=== PATIENT | male | born 1975 | race Caucasian/White ===

== ENCOUNTER → 2017-07-19 | Emergency (ER) | payer MEDICAID ==
[~2017-07-19] VITALS: Ht 188 cm; Wt 91.3 kg
[~2017-07-19] MED LIST: DIPH25CA83 PO; IBUP-1984 PO; METH4TAB3 PO; PRED20TA PO
[2017-07-19 09:06] VITALS: BP 154/105
== END | disposition home or self-care (01) ==
LOC: ER 08:57
DX: F15.10 Other stimulant abuse, uncomplicated (principal); L30.9 Dermatitis, unspecified; L84 Corns and callosities; Z98.890 Other specified postprocedural states
CPT/HCPCS: 99281

== ENCOUNTER 2018-02-08 14:26 | Emergency (ER) | payer MEDICAID ==
[~2018-02-08] VITALS: Ht 188 cm; Wt 103.0 kg
[2018-02-08 16:21] LABS: CLARITY,URINE CLEAR (Clear); COLOR,URINE STRAW (Yellow); GLUCOSE, URINE NEGATIVE (Neg); KETONES,URINE NEGATIVE (Neg); LEUKOCYTE ESTERASE ,URINE NEGATIVE (Neg); NITRITES, URINE NEGATIVE (Neg); OCCULT BLOOD,URINE NEGATIVE (Neg); PROTEIN,URINE NEGATIVE (Neg); UA COLLECTION TYPE CLN CATCH MIDSTREAM; UROBILINOGEN,URINE 0.2 E.U/dL (0.2-1.0)
[2018-02-08 16:27] LABS: URINE AMPHETAMINE SCREEN POSITIVE (Neg); URINE BARBITUATE SCREEN NEGATIVE (Neg); URINE BENZODIAZEPINES SCREEN NEGATIVE (Neg); URINE CANNABINOID SCREEN POSITIVE (Neg); URINE COCAINE SCREEN NEGATIVE (Neg); URINE METHADONE SCREEN NEGATIVE (Neg); URINE OPIATE SCREEN NEGATIVE (Neg); URINE PHENCYCLIDINE SCREEN NEGATIVE (Neg)
[2018-02-08] MEDS ORDERED: IBUP-1984 PO (17:35)
[2018-02-08 17:38] VITALS: BP 111/76
== END 2018-02-08 17:43 | disposition home or self-care (01) ==
LOC: ER 14:26
DX: M79.661 Pain in right lower leg (principal); R60.0 Localized edema; R10.31 Right lower quadrant pain; F15.90 Other stimulant use, unspecified, uncomplicated; X58.XXXA Exposure to other specified factors, initial encounter; Y93.39 Activity, other involving climbing, rappelling and jumping off; Y92.89 Other specified places as the place of occurrence of the external cause; Y99.8 Other external cause status
CPT/HCPCS: 73590; 73610; 80305; 81003; 93971; 99285

== ENCOUNTER 2018-04-19 04:34 | Emergency (ER) | payer MEDICAID ==
[~2018-04-19] VITALS: Ht 188 cm; Wt 98.0 kg
[2018-04-19 04:44] VITALS: BP 125/89
== END 2018-04-19 04:57 | disposition home or self-care (01) ==
LOC: ER 04:35
DX: R52 Pain, unspecified (principal); F15.90 Other stimulant use, unspecified, uncomplicated; Z79.899 Other long term (current) drug therapy; Z98.890 Other specified postprocedural states; Z59.0 Homelessness
CPT/HCPCS: 99281

== ENCOUNTER 2018-07-24 16:06 | Emergency (ER) | payer MEDICAID | END 2018-07-24 16:26 | disposition left against medical advice (07) | LOC: ER 16:06 | DX: T14.8XXA Other injury of unspecified body region, initial encounter (principal); Z53.21 Procedure and treatment not carried out due to patient leaving prior to being seen by health care provider; W54.0XXA Bitten by dog, initial encounter; Y93.89 Activity, other specified; Y92.89 Other specified places as the place of occurrence of the external cause; Y99.8 Other external cause status ==

== ENCOUNTER 2022-06-30 12:03 | Emergency (ER) | payer MEDICAID ==
[~2022-06-30] VITALS: Ht 188 cm; Wt 97.7 kg
[2022-06-30 14:46] VITALS: BP 138/108
--- NOTE | 2022-06-30 16:38 | NUR ---
pt eloped at approx 1555. pt n ot in room , aware.
== END 2022-06-30 18:49 | disposition left against medical advice (07) ==
LOC: ER 12:04
DX: R45.851 Suicidal ideations (principal); Z53.21 Procedure and treatment not carried out due to patient leaving prior to being seen by health care provider
CPT/HCPCS: 82948; 99281

== ENCOUNTER 2022-07-06 11:59 | Emergency (ER) | payer MEDICAID ==
[~2022-07-06] VITALS: Ht 188 cm; Wt 100.0 kg
[2022-07-06 12:15] VITALS: BP 149/104
== END 2022-07-06 15:00 | disposition home or self-care (01) ==
LOC: ER 11:59
DX: F15.10 Other stimulant abuse, uncomplicated (principal); F11.10 Opioid abuse, uncomplicated; F17.200 Nicotine dependence, unspecified, uncomplicated; Z79.899 Other long term (current) drug therapy; Z59.00 Homelessness unspecified
CPT/HCPCS: 99281

== ENCOUNTER 2022-09-13 17:41 | Emergency (ER) | payer MEDICAID | END 2022-09-13 18:21 | disposition left against medical advice (07) | LOC: ER 17:41 | DX: M79.603 Pain in arm, unspecified (principal); Z53.21 Procedure and treatment not carried out due to patient leaving prior to being seen by health care provider ==

== ENCOUNTER 2022-09-16 14:22 | Emergency (ER) | payer MEDICAID ==
[~2022-09-16] VITALS: Ht 188 cm; Wt 104.0 kg
[2022-09-16 14:49] VITALS: BP 118/92
--- NOTE | 2022-09-16 15:29 | NUR ---
xray at bs
== END 2022-09-16 16:06 | disposition home or self-care (01) ==
LOC: ER 14:22
DX: M79.602 Pain in left arm (principal); M79.89 Other specified soft tissue disorders
CPT/HCPCS: 73110; 99283; A6449

== ENCOUNTER 2022-10-24 04:58 | Emergency (ER) | payer MEDICAID ==
[~2022-10-24] VITALS: Ht 188 cm; Wt 104.5 kg
[2022-10-24 07:30] VITALS: BP 152/111
--- NOTE | 2022-10-24 07:43 | NUR ---
DISCHARGE PAPERS READY, TRIED GETTING PT UP. PT STARTED VOMMITING AND UNSTEADY ON FEET.
[2022-10-24] MEDS ORDERED: ondansetron 4mg rapidly disintigrating tab PO ONE (08:10)
--- NOTE | 2022-10-24 08:12 | NUR ---
Pt dry sandra morrison given.
--- NOTE | 2022-10-24 08:14 | NUR ---
PT REFUSING TO GET INTO BED, SITTING ON CHAIR.
[2022-10-24] MEDS ORDERED: metoclopramide 5 mg/ml inj IM ONE (10:15)
--- NOTE | 2022-10-24 10:30 | NUR ---
Pt still vomiting, new rx ordered.
[2022-10-25] MEDS ORDERED: AZIT-31 PO (14:12)
== END 2022-10-24 11:15 | disposition home or self-care (01) ==
LOC: ER 04:58
DX: T40.411A Poisoning by fentanyl or fentanyl analogs, accidental (unintentional), initial encounter (principal); R41.82 Altered mental status, unspecified; F15.10 Other stimulant abuse, uncomplicated; Z59.00 Homelessness unspecified; Z56.0 Unemployment, unspecified; Z88.8 Allergy status to other drugs, medicaments and biological substances; Z79.899 Other long term (current) drug therapy; Y92.89 Other specified places as the place of occurrence of the external cause
CPT/HCPCS: 96372; 99285; J2765; A4615

== ENCOUNTER 2022-10-25 12:22 | Emergency (ER) | payer MEDICAID ==
[~2022-10-25] VITALS: Ht 188 cm; Wt 104.5 kg
[2022-10-25 12:50] VITALS: BP 133/94
[2022-10-25] MEDS ORDERED: AZIT-31 PO (14:12)
== END 2022-10-25 14:32 | disposition home or self-care (01) ==
LOC: ER 12:22
DX: H66.91 Otitis media, unspecified, right ear (principal); F19.10 Other psychoactive substance abuse, uncomplicated; F17.200 Nicotine dependence, unspecified, uncomplicated; Z88.8 Allergy status to other drugs, medicaments and biological substances; Z59.00 Homelessness unspecified; Z56.0 Unemployment, unspecified
CPT/HCPCS: 99283

== ENCOUNTER 2022-11-01 04:10 | Emergency (ER) | payer MEDICAID ==
[~2022-11-01] VITALS: Ht 188 cm; Wt 104.5 kg
[2022-11-01 04:15] VITALS: BP 125/88
--- NOTE | 2022-11-01 04:21 | NUR ---
DRANK A CUP OF ICE WATER WITHOUT DIFFICULTY.
== END 2022-11-01 04:30 | disposition home or self-care (01) ==
LOC: ER 04:11
DX: Z00.00 Encounter for general adult medical examination without abnormal findings (principal); F15.20 Other stimulant dependence, uncomplicated; Z88.8 Allergy status to other drugs, medicaments and biological substances; Z59.00 Homelessness unspecified; Z56.0 Unemployment, unspecified
CPT/HCPCS: 99283

== ENCOUNTER 2023-08-07 14:44 | Emergency (ER) | payer MEDICAID ==
[~2023-08-07] VITALS: Ht 188 cm; Wt 114.8 kg
[2023-08-07 14:46] VITALS: BP 127/99; PULSE 98; RESP 16; TEMP 98.2; O2SAT 96
[2023-08-07] MEDS ORDERED: PRED20TA PO (15:19)
[2023-08-07] MEDS ORDERED: SKIN30CL4 TP (15:19)
[2023-08-07] MEDS: dexamethasone sod phosphate 10mg/ml inj IM STA (15:40)
== END 2023-08-07 15:48 | disposition home or self-care (01) ==
LOC: ER 14:44
DX: L30.9 Dermatitis, unspecified (principal); F15.90 Other stimulant use, unspecified, uncomplicated; Z88.8 Allergy status to other drugs, medicaments and biological substances; Z79.899 Other long term (current) drug therapy
CPT/HCPCS: 96372; 99283; J1100

== ENCOUNTER 2023-11-30 17:31 | Emergency (ER) | payer MEDICAID ==
[~2023-11-30] VITALS: Ht 188 cm; Wt 104.5 kg
[~2023-11-30 17:31] MED LIST changes: +SKIN30CL4 TP
[2023-11-30] MEDS: traMADol 50MG tablet PO ONE (18:04)
[2023-11-30] MEDS: ketorolac trometh. 30mg/ml inj. IM ONE (18:06)
[2023-11-30 18:33] VITALS: BP 132/84; PULSE 83; RESP 18; TEMP 98.4; O2SAT 98
== END 2023-11-30 18:36 | disposition home or self-care (01) ==
LOC: ER 17:32
DX: M54.50 Low back pain, unspecified (principal); F17.200 Nicotine dependence, unspecified, uncomplicated; F15.90 Other stimulant use, unspecified, uncomplicated; Z72.89 Other problems related to lifestyle; Z59.00 Homelessness unspecified; Z56.0 Unemployment, unspecified; Z88.8 Allergy status to other drugs, medicaments and biological substances; Z79.899 Other long term (current) drug therapy; Z79.52 Long term (current) use of systemic steroids
CPT/HCPCS: 96372; 99283; J1885

== ENCOUNTER 2024-06-05 14:34 | Emergency (ER) | payer MEDICAID ==
[~2024-06-05] VITALS: Ht 188 cm; Wt 106.9 kg
[2024-06-05] MEDS ORDERED: IBUP-1985 PO (16:40)
[2024-06-05 17:09] VITALS: BP 126/72; PULSE 89; RESP 16; TEMP 98.9; O2SAT 98
[2024-06-05 17:21] LABS: APPEARANCE,SYNOVIAL FLUID CLOUDY; COLOR,SYNOVIAL FLUID YELLOW; SYN RBC 900 /CU MM (0); SYN WBC 13350 /CU MM (0-200)
== END 2024-06-05 17:13 | disposition home or self-care (01) ==
LOC: ER 14:35
DX: M25.461 Effusion, right knee (principal); F15.90 Other stimulant use, unspecified, uncomplicated; M25.561 Pain in right knee; Z79.899 Other long term (current) drug therapy; Z56.0 Unemployment, unspecified; Z59.00 Homelessness unspecified; Z98.890 Other specified postprocedural states; Z72.89 Other problems related to lifestyle; Z88.8 Allergy status to other drugs, medicaments and biological substances
CPT/HCPCS: 20610; 73564; 87205; 89051; 99284; A6449

== ENCOUNTER 2024-06-19 08:32 | Emergency (ER) | payer MEDICAID ==
[~2024-06-19] VITALS: Ht 188 cm; Wt 118.2 kg
[~2024-06-19 08:32] MED LIST changes: +IBUP-1985 PO
[2024-06-19 08:39] VITALS: BP 126/85; PULSE 115; RESP 18; TEMP 98.7; O2SAT 96
== END 2024-06-19 10:03 | disposition home or self-care (01) ==
LOC: ER 08:32
DX: J32.9 Chronic sinusitis, unspecified (principal); R05.9 Cough, unspecified; J45.909 Unspecified asthma, uncomplicated; F17.200 Nicotine dependence, unspecified, uncomplicated; F15.90 Other stimulant use, unspecified, uncomplicated; Z88.8 Allergy status to other drugs, medicaments and biological substances; Z59.00 Homelessness unspecified; Z79.899 Other long term (current) drug therapy
CPT/HCPCS: 99281

== ENCOUNTER 2025-02-21 08:20 | Emergency (ER) | payer MEDICAID ==
[~2025-02-21] VITALS: Ht 188 cm; Wt 122.2 kg
[~2025-02-21 08:20] MED LIST changes: -IBUP-1985 PO; +IBUP600T52 PO
[2025-02-21 08:24] VITALS: BP 126/85; PULSE 88; RESP 16; TEMP 98.2; O2SAT 96
[2025-02-21 09:01] LABS: STREP A SCREEN NEGATIVE (Neg)
--- NOTE | 2025-02-21 09:15 | Physician Documentation ---
History of Present Illness ~ Chief Complaint: Sore Throat Stated Complaint: POSS STREP Time Seen by MD: 09:07 OK to notify your PCP?: Yes Primary Medical Doctor: NONE Source: patient, RN/MD, RN notes reviewed, old records Mode of Arrival: POV Exam Limitations: no limitations HPI This patient is a 49 y/o male who presents to ED with chief complaint of sore throat. Patient reports he has had a worsening sore throat a little over 24 hours. He also endorses runny nose and nasal congestion, but states his sore throat is his biggest complaint. Patient notes he has had strep throat in the past and that this feels similar. Patient denies any fevers. Patient denies any other associated symptoms at this time. Patient denies any other alleviating or exacerbating factors. Medication Reconciliation Allergies: Coded Allergies: aripiprazole (Unverified Allergy, Unknown, 11/30/23) PER PT Scheduled Azithromycin (Zithromax), 1 TAB PO DAILY Diphenhydramine Hcl (Benadryl), 1 CAP PO HS Ibuprofen (Ibuprofen), 1 TAB PO Q8H Methylprednisolone (Medrol), 1 DOSPAK PO UD Prednisone* (Prednisone*), 20 MG PO BID Skin Cleanser Combination No.8 (Zanfel), 1 APPLIC TP PRN Scheduled PRN Ibuprofen* (Motrin*), 800 MG PO TID PRN Past Medical History Past Medical History: Asthma, Eczema Past Surgical History: orthopedic surgeries Smoking Status: Current every day smoker Alcohol Use: Occasionally Drug Use: methamphetamine Lives In: Homeless Occupation: unemployed Review of Systems All Other Systems at this time: Reviewed and Negative Physical Exam Vital Signs: RN Vital Signs have been reviewed: Yes, Temperature: 98.2, Source: Oral, Heart Rate: 88, Respiratory Rate: 16, BP: 126/85, Pulse Oximetry: 96, Weight: 122.200 Oxygen Flow Rate: 0 Physical Exam General: The patient is well developed, well nourished, nontoxic appearing and is in no acute distress. Skin: [place], warm and dry with no rashes. HEENT: Nasal congestion. Pharyngeal erythema with petechiae. The mouth and oropharynx were otherwise clear with moist mucous membranes.Head was normocephalic and atraumatic. Eyes - pupils equal, round, reactive to light and accommodation. Extraocular movements were intact. Conjunctivae were nonicteric. Neck: Lymphadenopathy. Neck otherwise supple and nontender. There was no jugular venous distention, thyromegaly or masses. Chest: Clear to auscultation bilaterally without wheezes, rales or rhonchi. No accessory muscle use. No dullness to percussion. Heart: Rate regular and rhythmic. S1, S2. No murmurs. Palpation of the chest wall was normal. No rubs or thrills. Abdomen: Soft, nontender and nondistended. Positive bowel sounds. No guarding or rebound. No hepatosplenomegaly or palpable masses. Extremities: No cyanosis, clubbing or edema. The patient moves all extremities. Pulses were equal and symmetric. Neurologic: Cranial nerves II-XII were intact. Sensation was intact to light touch throughout. Motor strength was 5/5 in all four extremities. Deep tendon reflexes were intact in both upper and lower extremities. Psychologic: The patient was oriented to person, place and time. The patient demonstrated appropriate judgement and insight. Progress Results/Orders Reviewed/noted all lab results: Yes Results/Orders Orders - CHATO MENDOZA MD Cult Throat + R/O Beta Strep (02/21/25 09:01) Completed Orders - CHATO MENDOZA MD Strep A Rapid (02/21/25 08:27) Dexamethasone Inj (Decadron 10mg/Ml Inj) (02/21/25 09:22) Diphenhydramine Oral Solution (Hydramine (02/21/25 09:25) Azithromycin Tablet (Zithromax Tablet) (02/21/25 09:25) Naproxen Tablet (Naprosyn Tablet) (02/21/25 09:25) Medications Received in ER Medications (Trade) Dose Ordered Sig/Fabien Route PRN Reason Start Time Stop Time Status Last Admin Dose Admin (Decadron 10mg/ ml inj) 10 mg ONCE STAT PO 02/21/25 09:22 02/21/25 09:24 DC 02/21/25 09:39 10 MG (Zithromax tablet) 500 mg ONCE ONCE PO 02/21/25 09:25 02/21/25 09:26 DC 02/21/25 09:39 500 MG (Naprosyn tablet) 500 mg ONCE ONCE PO 02/21/25 09:25 02/21/25 09:26 DC 02/21/25 09:39 500 MG Vital Signs 02/21/25 08:24 Temp 98.2 Pulse 88 Resp 16 B/P (MAP) 126/85 Pulse Ox 96 O2 Flow Rate 0 Laboratory Tests Test 02/21/25 08:20 Group A Streptococcus Rapid Negative Re-Evaluation Re-Evaluation : Re-Evaluation: Improved Progress Patient was seen and examined. Patient is given reassurance. Patient received steroids, liquid Benadryl, naproxen for pain and started on antibiotics for presumed strep pharyngitis. Physical exam had some petechiae redness very suspicious for strep pharyngitis. Patient was having some low-grade fevers but also had some URI like complaints such as some nasal congestion denies any exposure to COVID this is not the worst sore throat that they have had in the p ast. With the extensive petechiae on the oropharynx patient will be treated for strep pharyngitis. Later the culture came back as negative but will continue the bacterial treatment. Medical Decision Making Additional information obtaine: old records Findings Viral versus bacterial pharyngitis however COVID is also in the differential. Ear Diff. Dx: Considerations: Include: Other Eye Diff. Dx: Considerations: Include: Other Nose Diff. Dx: Considerations: Include: Other Tooth Diff. Dx: Considerations: Include: Other Throat Diff Dx: Considerations: Include: Epiglottitis, Esophageal candidiasis, Hand foot mouth disease, Herpangina, Herpetic stomatitis, Herpes simplex, Infection mononucleosis, Immunodeficiency, Tuan's angina, Peritonsillar abscess, Peritonsillar cellulitis, Pharyngitis-strepococcal, Pharyngitis-viral, Thrush, URI, Other Departure Time of Disposition: 09:30 Disposition: 01 HOME / SELF CARE / HOMELESS Impression: Primary Impression: Strep pharyngitis Condition: Stable Discharge Instructions: Sore Throat, Strep Throat, Adult Referrals: NO PRIMARY CARE PROVIDER (PCP) Prescriptions Azithromycin (Zithromax) 250 Mg Tablet 1 TAB PO DAILY, #4 TAB Prov: CHATO MENDOZA MD 02/21/25 Education Educated: Patient Educated regarding: diagnosis, treatment, need for follow up Signature Scribe Signature: Scribed for Chato Mendoza MD by Luci Ro. 02/21/25 09:30 Attestation: The note accurately reflects work and decisions made by me.Chato Mendoza MD 02/21/25 09:15 CHATO MENDOZA MD Feb 21, 2025 09:15
[2025-02-21] MEDS ORDERED: AZIT-164 PO (09:24)
[2025-02-21] MEDS: dexamethasone sod phosphate 10mg/ml inj PO STA (09:39)
[2025-02-21] MEDS: diphenhydrAMINE 25 MG/10 ML UD oral solution PO ONE (09:53)
== END 2025-02-21 10:11 | disposition home or self-care (01) ==
LOC: ER 08:21
DX: J02.0 Streptococcal pharyngitis (principal); J45.909 Unspecified asthma, uncomplicated; F17.200 Nicotine dependence, unspecified, uncomplicated; F15.90 Other stimulant use, unspecified, uncomplicated; Z88.8 Allergy status to other drugs, medicaments and biological substances
CPT/HCPCS: 87081; 87880; 99284; J1100; Q0163

== ENCOUNTER 2025-03-01 13:54 | Emergency (ER) | payer MEDICAID ==
[~2025-03-01] VITALS: Ht 188 cm; Wt 122.7 kg
[~2025-03-01 13:54] MED LIST changes: +AZIT-164 PO
[2025-03-01 13:55] VITALS: BP 152/100; PULSE 100; RESP 18; TEMP 98.5; O2SAT 99
--- NOTE | 2025-03-01 14:38 | RADIOLOGY REPORT ---
CLINICAL INDICATION: LEG PAIN left TECHNIQUE: 4 radiographic views of the left tibia/fibula were obtained. Comparison: DI KNEE, COMP 4 VW MIN on DOS: 06/05/24, WRIST, COMPLETE (3VW MIN) on DOS: 09/16/22 FINDINGS/IMPRESSION: There is no evidence of acute fracture or dislocation. The visualized joint space is well maintained. The alignment is anatomical. There is no radiopaque foreign body.
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
== END 2025-03-01 15:11 | disposition home or self-care (01) ==
LOC: ER 13:55
DX: S80.12XA Contusion of left lower leg, initial encounter (principal); J45.909 Unspecified asthma, uncomplicated; F15.90 Other stimulant use, unspecified, uncomplicated; Z88.8 Allergy status to other drugs, medicaments and biological substances; Z79.899 Other long term (current) drug therapy; Z56.0 Unemployment, unspecified; Z59.00 Homelessness unspecified; Z98.890 Other specified postprocedural states; Z72.89 Other problems related to lifestyle; V23.49XA Other motorcycle driver injured in collision with car, pick-up truck or van in traffic accident, initial encounter; Y93.89 Activity, other specified; Y92.89 Other specified places as the place of occurrence of the external cause; Y99.8 Other external cause status
CPT/HCPCS: 73590; 99283; A6449